=== PATIENT | female | born 1990 | race Caucasian/White ===

== ENCOUNTER 2020-12-20 08:35 | Inpatient (IN) | payer OTHER ==
[~2020-12-20] VITALS: Ht 175.3 cm; Wt 83.0 kg
[2020-12-20] MEDS ORDERED: ONDANSETRON ODT4 MG PO (08:56)
--- OUTSIDE RECORDS SUMMARY | 2020-12-20 10:32 | XMS ---
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 [place] VISIT COUNT (12 MO.) [address] TOTAL 4 NOTE: Visits indicate total known visits. ED/UCC VISIT TRACKING (12 MO.) 12/20/2020 08:36 [facility] TYPE: Emergency COMPLAINT: - L FLANK PAIN, BLADDER PAIN 12/17/2020 23:11 [facility] OR TYPE: Emergency DIAGNOSES: - Unspecified abdominal pain - Vomiting of , unspecified - flank pain 12/04/2020 08:45 [facility] OR TYPE: Emergency DIAGNOSES: - Hemorrhage in early , unspecified - POSS MISCARRIAGE 11/15/2020 08:09 [facility] OR TYPE: Emergency DIAGNOSES: - L SIDE FLANK PAIN - Unspecified abdominal pain - Less than 8 weeks gestation of INPATIENT VISIT TRACKING (12 MO.) No inpatient visits to display in this time frame [email or web address]
[2020-12-23] MEDS ORDERED: CEPHALEXIN500 MG PO (16:35)
[2020-12-23] MEDS ORDERED: HYDROCODON-ACE1 EA10 PO (16:35)
--- NOTE | 2020-12-27 09:07 | OR ---
[facility] [address] [facility] [place] [address] Signed DATE OF OPERATION: 12/22/2020 SURGEON: Garrett Li MD PREOPERATIVE DIAGNOSES: 1. Left flank pain and hydroureteronephrosis, secondary to an approximately 2 mm stone present at the level of the left ureterovesical junction. 2. Healthy woman at 9-1/2 weeks gestation. POSTOPERATIVE DIAGNOSES: 1. Left flank pain and hydroureteronephrosis, secondary to an approximately 2 mm stone present at the level of the left ureterovesical junction. 2. Healthy woman at 9-1/2 weeks gestation. NAMES OF PROCEDURES: 1. Diagnostic cystoscopy. 2. Left semi-rigid ureteroscopy with laser lithotripsy and basket extraction of stone fragments. ANESTHESIA: Epidural with sedation. ESTIMATED BLOOD LOSS: None. COMPLICATIONS: None. SPECIMENS: Fragments of 2 to 3 mm left ureterovesical junction calculus sent to the lab for stone analysis. DRAINS: None. INDICATIONS FOR PROCEDURE: Nabila is a very pleasant 30-year-old female with no previous history of nephrolithiasis, who presented to the Emergency Department around 2 days ago with severe left-sided flank pain. In the previous week, she had been seen 2 to 3 times in the emergency department with ongoing left-sided flank pain, nausea, and vomiting. She Electronically Signed By: GARRETT LI MD 12/27/20 0907 PATIENT NAME: NABILA TAVERAS OPERATIVE REPORT DATE OF : 89 REPORT #: [id number] PHYSICIAN: GARRETT LI MD PCP: CYNTHIA GAVIRIA MD REPORT IS CONFIDENTIAL AND NOT TO BE RELEASED WITHOUT AUTHORIZATION [facility] [address] [place], [place] [address] Signed finally underwent an ultrasound of her left kidney and bladder 2 days ago, which revealed the presence of a calculus located at the left ureterovesical junction. The patient was admitted and placed on IV fluids and antiemetics. She was also given a strainer to attempt a trial of passage of her stone. By late last night, the patient still had not passed her stone and she was interested in undergoing surgical extraction of her stone. Of note, she is 9-1/2 weeks and was initially notified of the risks of possible labor while undergoing surgery in the 1st trimester . After a thorough discussion of the risks and benefits of the procedure including loss of the fetus, the patient elected to undergo ureteroscopy with extraction of her left ureteral calculus. OPERATIVE FINDINGS: 1. On cystoscopy, there was no evidence of any suspicious masses, lesions, or stones. Bilateral ureteral orifices are located in their normal anatomic location. Of note, there is some bullous edema associated with the left ureteral orifice, likely related to the indwelling ureteral calculus that is not visible just at 1st glance of the ureter. 2. A semi-rigid ureteroscopy was performed and the small 2 to 3 mm stone was located about 2 cm proximal to the left ureterovesical junction. The stone was fragmented using a holmium laser at a level of 8 and 0.8 settings. The stone fragmented with some difficulty, however, it was otherwise successfully fragmented. 100% of the stone fragments were extracted from the patient's ureter using a Zero tip basket. The decision was made to defer placement of an indwelling ureteral stent due to the patient's first-trimester . DESCRIPTION OF PROCEDURE: After informed consent was obtained, the patient was taken back to the operating room. [facility] was [facility] to the operating room table, where spinal anesthesia was placed. She was then placed in the dorsal lithotomy position and genitalia prepped and draped in the standard sterile fashion. Using a 30-degree lens on a 22.5-Congolese introducer, which a cystoscope was inserted through the urethra into her bladder under direct visualization. Panendoscopic views of the bladder were then obtained. Please see above findings. Attention was turned to the left ureteral orifice, which was abnormal in appearance. Please see above findings. A semi-rigid ureteroscope was used to look inside the distal part of the ureter and the 2 to 3 mm stone was noted just on the inside, just proximal to the left ureterovesical junction. The stone was fragmented using a holmium laser at 8 and 0.8 settings. A basket was then used to extract these tiny stone fragments. A good deal of fragments fell out of the ureter once they had been successfully fragmented. Repeat ureteroscopy revealed no evidence of any stones up to the level of the proximal ureter. The ureteroscope was then removed. A cystoscope was reinserted into the patient's bladder and the stone fragments were extracted from the patient's bladder using the cystoscope. They were then placed in a specimen cup to be sent to the lab for stone analysis. The patient's bladder was then drained and the Electronically Signed By: GARRETT LI MD 12/27/20 0907 PATIENT NAME: NABILA TAVERAS OPERATIVE REPORT DATE OF : 89 REPORT #: [id number] PHYSICIAN: GARRETT LI MD PCP: CYTNHIA GAVIRIA MD REPORT IS CONFIDENTIAL AND NOT TO BE RELEASED WITHOUT AUTHORIZATION [address] [place] [address] Signed cystoscope was removed. The procedure was then terminated. The patient tolerated the procedure well without any complication. She will now be transferred to the postanesthesia care unit in stable condition. DISPOSITION: I discussed the details of today's procedure with the patient and her boyfriend and answered all of their questions. Once she is fully awake and her epidural wears off, she may be discharged to home once her pain is under adequate control and she is tolerating p.o. intake. I discussed with Dr. Waggoner, the best antibiotic to use at this point in time and she recommended oral cephalexin 500 mg p.o. b.i.d. for a total of 5 days. The patient will also be given a prescription for [place] 5/325, dispense #5 as needed for pain. She will be scheduled to return to clinic in about a month at which point, we can discuss the results of her stone analysis. MD EDGARDO Barrow/LEAH /[id number] Copies: ~ Electronically Signed By: GARRETT LI MD 12/27/20 0907 PATIENT NAME: NABILA TAVERAS OPERATIVE REPORT DATE OF : 89 REPORT #: [id number] PHYSICIAN: GARRETT LI MD PCP: CYNTHIA GAVIRIA MD REPORT IS CONFIDENTIAL AND NOT TO BE RELEASED WITHOUT AUTHORIZATION
--- NOTE | 2020-12-30 22:24 | DS ---
[facility] [address] [place], [place] [address] Signed ADMISSION DATE: 12/21/2020 DISCHARGE DATE: 12/23/2020 REASON FOR ADMISSION: Left ureteral stone, 9 weeks gestation. FINDINGS: The patient is a 30-year-old female who was admitted through the ED after ultrasound was significant for 6 mm left ureteral stone. This was her fourth ER presentation for significant left-sided flank pain. She was noted to be severely dehydrated and nauseated with baseline nausea and vomiting of exacerbated by her pain. She was admitted to observation status with IV fluid rehydration, started on Flomax and IV antiemetics and pain medication with hopes of passing the stone with adequate rehydration. After initial failure of expectant management, she was admitted within 24 hours. Urology was consulted and ureteroscopy under epidural anesthesia was discussed. After two days of medical management and confirmation by ultrasound that the stone had not moved from its position at the ureterovesical junction, the patient elected to proceed with this procedure which was performed without incident on 12/23/2020. Once she was ambulating, voiding, and tolerating a regular diet, she was discharged to home in stable condition with plans for followup within a week with her primary SENIOR TRAINER, Dr. Dickens and within the next 3-4 weeks with Urology, Dr. Damico. DISCHARGE DISPOSITION: Stable to home. DISCHARGE INSTRUCTIONS: Continue oral hydration. Continue straining urine. Follow up as directed. MEDICATIONS: Zofran to be used for breakthrough nausea not adequately treated by Phenergan which she has at home. DIET: Regular. PHYSICAL ACTIVITY: Electronically Signed By: MANUELA JEAN DO 12/30/20 2224 PATIENT NAME: EUGENE TAVERAS DISCHARGE SUMMARY DATE OF : 89 REPORT #: [id number] PHYSICIAN: MANUELA JEAN DO PCP: CYNTHIA DICKENS MD REPORT IS CONFIDENTIAL AND NOT TO BE RELEASED WITHOUT AUTHORIZATION [facility] [address] [place] [id number] Signed Unrestricted. All of the patient's questions were answered to her apparent satisfaction to the best of my ability and she felt comfortable with plan for discharge. DO RILEY Reynoso/CHRISTINEL /[id number] Copies: ~ Electronically Signed By: MANUELA JEAN DO 12/30/20 2224 PATIENT NAME: EUGENE TAVERAS DISCHARGE SUMMARY DATE OF : 89 REPORT #: [id number] PHYSICIAN: MANUELA JEAN DO PCP: CYNTHIA DICKENS MD REPORT IS CONFIDENTIAL AND NOT TO BE RELEASED WITHOUT AUTHORIZATION
== END 2020-12-23 16:45 | disposition home or self-care (01) | DRG 818 ==
LOC: ED 08:35 → MS 08:37
PROVIDERS: Urology; ADMIT Obstetrics & Gynecology; ATTEND Obstetrics & Gynecology
PROC: 0TC78ZZ Extirpation of Matter from Left Ureter, Via Natural or Artificial Opening Endoscopic (ICD-10-PCS; principal; 2020-12-23 07:00)
DX: O99.891 Other specified diseases and conditions complicating pregnancy (principal); N13.2 Hydronephrosis with renal and ureteral calculous obstruction; Z20.822 Contact with and (suspected) exposure to COVID-19; Z3A.09 9 weeks gestation of pregnancy; O21.0 Mild hyperemesis gravidarum; O99.841 Bariatric surgery status complicating pregnancy, first trimester; O20.8 Other hemorrhage in early pregnancy
CPT/HCPCS: 00918; 36415; 51798; 76770; 76801; 76857; 80048; 80053; 81001; 82365; 84703; 85025; 96375; 96376; 99285-25; C1769; C9803; G0378; J0696; J0780; J2001; J2270; J2405; J2704; J2765; J7030; J7121; U0003